=== PATIENT | male | born 1990 | race Asian ===

== ENCOUNTER 2021-06-11 14:32 | Emergency (ER) | payer MEDICAID ==
[~2021-06-11] VITALS: Ht 177.8 cm; Wt 100.0 kg
[2021-06-11] MEDS ORDERED: ONDANSETRON HCL 4MG/2ML INJ IV STA (14:57)
[2021-06-11] MEDS ORDERED: MORPHINE SULFATE 4 MG/ML CPJ (NOT FOR IM USE) IV STA (14:57)
[2021-06-11] MEDS ORDERED: FAMOTIDINE 20MG/2ML VIAL IV ONE (15:00)
[2021-06-11] MEDS ORDERED: SODIUM CHLORIDE 0.9% 1,000 ML IV ONE ×2 (15:00→17:45)
[2021-06-11 16:09] LABS: HEMATOCRIT. 48.5 % (42.0-52.0); HEMOGLOBIN. 16.1 g/dL (14.0-18.0); MEAN CORPUSCULAR HEMOGLOBIN 28.7 pg (28.0-32.0); MEAN CORPUSCULAR VOLUME 86.4 fL (80.0-94.0); MEAN PLATELET VOLUME 8.1 fl (7.4-10.4); PLATELET 224 x1000/uL (130-400); RED BLOOD CELL COUNT 5.61 mill/uL (4.7-6.1); RED CELL DISTRIBUTION WIDTH 13.5 % (11.6-14.6)
[2021-06-11 16:15] LABS: CHLORIDE 109 mEq/L (98-107)
[2021-06-11 16:42] LABS: PLATELET ESTIMATE NORMAL
[2021-06-11] MEDS ORDERED: PROT20 MT (17:35)
[2021-06-11] MEDS ORDERED: MAG-55 MT (17:36)
[2021-06-11] MEDS ORDERED: MORPHINE SULFATE 4 MG/ML CPJ (NOT FOR IM USE) IV ONE (17:45)
[2021-06-11 21:24] VITALS: BP 113/68
== END 2021-06-11 21:29 | disposition home or self-care (01) ==
LOC: ER 14:32
DX: R10.13 Epigastric pain (principal); F17.200 Nicotine dependence, unspecified, uncomplicated; R00.0 Tachycardia, unspecified; Z20.822 Contact with and (suspected) exposure to COVID-19; Z86.59 Personal history of other mental and behavioral disorders
CPT/HCPCS: 36415; 76705; 80053; 83690; 85025; 87426; 96361; 96374; 96375; 99284; J2270; J2405; J3490; J7030